=== PATIENT | female | born 1960 | race Caucasian/White ===

== ENCOUNTER 2017-06-04 10:02 | Inpatient (IN) | payer MEDICAID ==
[2017-06-04] MEDS ORDERED: ZOLPIDEM TARTRATE 10 MG TABLET PO PRN (11:00)
[2017-06-04] MEDS ORDERED: HALOPERIDOL 5 MG TABLET PO PRN (11:00)
[2017-06-04 13:00] VITALS: BP 104/63
[2017-06-04] MEDS ORDERED: INFLUENZA VIRUS VACCINE QVS 2017-18 (3YR+)/PF 60 MCG/0.5 ML SYRINGE IM ONE (15:15)
[2017-06-04 16:49] VITALS: BP 100/68
[2017-06-04] MEDS: LORazepam 2 MG TABLET PO PRN (17:45)
[2017-06-05 08:00] VITALS: BP 108/73
[2017-06-05 16:25] VITALS: BP 113/77
[2017-06-05] MEDS: LORazepam 2 MG TABLET PO PRN (17:02)
[2017-06-05] MEDS: OLANZapine 5 MG TABLET PO SCH (20:38)
[2017-06-05 22:20] VITALS: BP 101/57
[2017-06-06 07:19] VITALS: BP 121/64
[2017-06-06 08:00] VITALS: BP 128/66
[2017-06-06] MEDS ORDERED: ALBUTEROL SULFATE HFA 90 MCG/PUFF 8 GM INHALER IH PRN (12:30)
[2017-06-06] MEDS ORDERED: BACITRACIN 28.4 GM OINTMENT TP PRN (12:30)
[2017-06-06] MEDS ORDERED: LOPERAMIDE HCL 2 MG CAPSULE PO PRN (12:30)
[2017-06-06] MEDS ORDERED: MAGNESIUM HYDROXIDE SUSPENSION 30 ML UDCUP PO PRN (12:30)
[2017-06-06] MEDS ORDERED: CloNIDine HCL 0.1 MG TABLET PO PRN (12:30)
[2017-06-06] MEDS ORDERED: ONDANSETRON HCL 4 MG TABLET PO PRN (12:30)
[2017-06-06] MEDS ORDERED: PETROLATUM,WHITE 71 GM JELLY TP PRN (12:30)
[2017-06-06] MEDS ORDERED: MAG HYDROX/AL HYDROX/SIMETH ES 30 ML SUSPENSION UDCUP PO PRN (12:30)
[2017-06-06] MEDS ORDERED: BENZOCAINE/MENTHOL LOZENGE MM PRN (12:30)
[2017-06-06] MEDS: IBUPROFEN 600 MG TABLET PO PRN ×2 (14:01→22:21)
[2017-06-06 16:14] VITALS: BP 138/84
[2017-06-06] MEDS: ACETAMINOPHEN 325 MG TABLET PO PRN (17:45)
[2017-06-06] MEDS: OLANZapine 5 MG TABLET PO SCH (20:39)
[2017-06-07 06:58] VITALS: BP 124/67
[2017-06-07 08:30] LABS: HEMATOCRIT 40.2 % (36-46); HEMOGLOBIN 13.7 g/dL (12.0-16.0); MEAN CORPUSCULAR HEMOGLOBIN 29.3 pg (26.0-34.0); MEAN CORPUSCULAR VOLUME 86 fL (80-100); PLATELET COUNT (AUTO) 190 K/uL (150-450); RED BLOOD CELL COUNT(AUTO) 4.66 MIL/uL (4.00-5.20); RED CELL DISTRIBUTION WIDTH 14.6 % (11.5-14.5)
[2017-06-07 08:35] VITALS: BP 121/76
[2017-06-07 09:02] LABS: BAND NEUTROPHILS % (MANUAL) 1 % (1-5); EOSINOPHILS % (MANUAL) 3 % (1-6); LYMPHOCYTES % (MANUAL) 22 % (22-44); MONOCYTES % (MANUAL) 9 % (2-9); SEGMENTED NEUTROPHILS % 65 % (40-70)
[2017-06-07 09:10] LABS: ANION GAP 4 mmol/L (8-16); CARBON DIOXIDE 31 mmol/L (22-29); CHLORIDE 105 mmol/L (98-107); CHOL/HDL RATIO 2.1 (3.9-5.7); CHOLESTEROL 214 mg/dL (131-200); CREATININE 0.55 mg/dL (0.60-1.30); GLOMERULAR FILTR. RATE CALC > 60 mL/min (>60); GLUCOSE,RANDOM 87 mg/dL (70-110); HDL CHOLESTEROL 100 mg/dL (40-60); LDL CHOL (CALC.) 104 mg/dL (0-130); PHOSPHORUS 4.6 mg/dL (2.5-4.9); POTASSIUM 4.7 mmol/L (3.5-5.1); SODIUM SERUM 140 mmol/L (136-145); TRIGLYCERIDES 51 mg/dL (15-150); UREA NITROGEN, BLOOD 20 mg/dL (7-18)
[2017-06-07] MEDS: OLANZapine 5 MG TABLET PO SCH ×2 (09:19→20:34)
[2017-06-07] MEDS: DOCUSATE SODIUM 100 MG CAPSULE PO SCH (09:19)
[2017-06-07] MEDS: OMEPRAZOLE 20 MG CAPSULE PO SCH (09:19)
[2017-06-07 16:11] VITALS: BP 109/61
[2017-06-07 18:30] VITALS: BP 128/74
[2017-06-07] MEDS: IBUPROFEN 600 MG TABLET PO PRN (18:35)
[2017-06-08] MEDS: LORazepam 2 MG TABLET PO PRN ×2 (00:51→17:17)
[2017-06-08] MEDS: ACETAMINOPHEN 325 MG TABLET PO PRN ×2 (00:51→18:50)
[2017-06-08 00:52] VITALS: BP 131/78
[2017-06-08] MEDS: IBUPROFEN 600 MG TABLET PO PRN ×2 (07:23→14:11)
[2017-06-08 08:25] VITALS: BP 122/66
[2017-06-08] MEDS: CHOLECALCIFEROL (VIT D3) 1,000 UNITS TABLET PO SCH (08:32)
[2017-06-08] MEDS: OLANZapine 5 MG TABLET PO SCH ×2 (08:32→20:13)
[2017-06-08] MEDS: OMEPRAZOLE 20 MG CAPSULE PO SCH (08:32)
[2017-06-08] MEDS: DOCUSATE SODIUM 100 MG CAPSULE PO SCH (08:32)
[2017-06-08 16:15] VITALS: BP 103/64
[2017-06-08 18:50] VITALS: BP 112/65
[2017-06-09 01:44] VITALS: BP 117/63
[2017-06-09] MEDS: DOCUSATE SODIUM 100 MG CAPSULE PO SCH (08:02)
[2017-06-09] MEDS: OLANZapine 5 MG TABLET PO SCH (08:02)
[2017-06-09] MEDS: CHOLECALCIFEROL (VIT D3) 1,000 UNITS TABLET PO SCH (08:02)
[2017-06-09] MEDS: OMEPRAZOLE 20 MG CAPSULE PO SCH (08:02)
[2017-06-09] MEDS: IBUPROFEN 600 MG TABLET PO PRN ×2 (08:02→17:03)
[2017-06-09 08:42] VITALS: BP 130/62
[2017-06-09] MEDS: LORazepam 2 MG TABLET PO PRN ×2 (08:50→16:47)
[2017-06-09 16:21] VITALS: BP 111/65
[2017-06-09 17:02] VITALS: BP 115/75
[2017-06-09] MEDS: OLANZapine 7.5 MG TABLET PO SCH (20:26)
[2017-06-10 03:26] VITALS: BP 119/61
[2017-06-10] MEDS: IBUPROFEN 600 MG TABLET PO PRN ×2 (06:22→12:48)
[2017-06-10] MEDS: OLANZapine 7.5 MG TABLET PO SCH (08:00)
[2017-06-10 08:49] VITALS: BP 100/51
[2017-06-10] MEDS: CHOLECALCIFEROL (VIT D3) 1,000 UNITS TABLET PO SCH (09:11)
[2017-06-10] MEDS: OMEPRAZOLE 20 MG CAPSULE PO SCH (09:11)
[2017-06-10] MEDS: DOCUSATE SODIUM 100 MG CAPSULE PO SCH (09:11)
[2017-06-10] MEDS: LORazepam 2 MG TABLET PO PRN ×2 (12:48→17:43)
[2017-06-10 16:18] VITALS: BP 105/66
[2017-06-10 18:06] VITALS: BP 108/65
[2017-06-10] MEDS: ACETAMINOPHEN 325 MG TABLET PO PRN (18:06)
[2017-06-10] MEDS: OLANZapine 10 MG TABLET PO SCH (20:38)
[2017-06-11 07:16] VITALS: BP 112/67
[2017-06-11 08:21] VITALS: BP 120/69
[2017-06-11] MEDS: CHOLECALCIFEROL (VIT D3) 1,000 UNITS TABLET PO SCH (09:27)
[2017-06-11] MEDS: OMEPRAZOLE 20 MG CAPSULE PO SCH (09:28)
[2017-06-11] MEDS: DOCUSATE SODIUM 100 MG CAPSULE PO SCH (09:28)
[2017-06-11] MEDS: LORazepam 2 MG TABLET PO PRN (09:28)
[2017-06-11] MEDS: OLANZapine 10 MG TABLET PO SCH ×2 (09:28→20:18)
[2017-06-11 16:16] VITALS: BP 129/67
[2017-06-12 05:05] VITALS: BP 124/70
[2017-06-12 08:13] VITALS: BP 121/71
[2017-06-12] MEDS: OMEPRAZOLE 20 MG CAPSULE PO SCH (08:46)
[2017-06-12] MEDS: OLANZapine 10 MG TABLET PO SCH (08:46)
[2017-06-12] MEDS: DOCUSATE SODIUM 100 MG CAPSULE PO SCH (08:47)
[2017-06-12] MEDS: CHOLECALCIFEROL (VIT D3) 1,000 UNITS TABLET PO SCH (08:47)
[2017-06-12] MEDS ORDERED: OLAN10TA3 PO (13:58)
[2017-06-12] MEDS ORDERED: DSS100 PO (14:00)
[2017-06-12] MEDS ORDERED: VITAD1000 PO (14:00)
[2017-06-12] MEDS ORDERED: OMEP20 PO (14:00)
== END 2017-06-12 17:35 | disposition home or self-care (01) | DRG 750 ==
LOC: B3A 12:45
DX: F20.0 Paranoid schizophrenia (principal); S22.41XA Multiple fractures of ribs, right side, initial encounter for closed fracture; Z59.0 Homelessness; E55.9 Vitamin D deficiency, unspecified; F15.10 Other stimulant abuse, uncomplicated; F41.9 Anxiety disorder, unspecified; F17.200 Nicotine dependence, unspecified, uncomplicated; Z56.0 Unemployment, unspecified; Z28.21 Immunization not carried out because of patient refusal; G47.00 Insomnia, unspecified; J44.9 Chronic obstructive pulmonary disease, unspecified; K59.00 Constipation, unspecified; Z71.51 Drug abuse counseling and surveillance of drug abuser; Z71.6 Tobacco abuse counseling; X58.XXXA Exposure to other specified factors, initial encounter; Y93.89 Activity, other specified; Y92.89 Other specified places as the place of occurrence of the external cause; Y99.8 Other external cause status; E78.00 Pure hypercholesterolemia, unspecified
CPT/HCPCS: 71101; 82306; 83036; 83735; 84100; 84443; 85007; Q0162